=== PATIENT | female | born 1995 | race African-American/Black ===

== ENCOUNTER 2022-10-04 14:25 | Outpatient (CLI) | payer OTHER, SELFPAY ==
--- NOTE | ~2022-10-04 | MR_ITS ---
EXAMINATION: MR elbow RT wo con DATE: 10/04/2022 15:33 INDICATION: Flexion contracture of the right elbow TECHNIQUE: Magnetic resonance imaging (MRI) of the right elbow was performed without intravenous cont rast. Sequences included coronal, axial, and sagittal PD-weighted FS FSE and coronal, axial, and sagi ttal PD-weighted FSE. COMPARISON: None FINDINGS: Osseous/other: There appears to be an abnormal configuration of the proximal right radius which demonstrates a great er degree of angulation of the articular surface relative to the axis of the forearm which could be e ither developmental or sequela of an old healed fracture. No acute fracture or pathologic marrow repl acing process. Mild osteoarthritis at the proximal radioulnar articulation. Mild to moderate osteoart hritis at the capitellar articulation with deep chondral ulceration and cortical irregularity at the central aspect of the capitellum and less severe partial thickness cartilage loss but with mild under lying subarticular edema-like signal change along a portion of the radial head at the junction of its articulations with the capitellum and the proximal ulna. Minimal ulnotrochlear osteoarthritis.. Tendons: Triceps, biceps brachii and brachialis tendons are normal. Common flexor tendon wad is normal. Small enthesophytes and mild tendinopathy without tear at the humeral origin of the common extensor tendon wad. Ligaments: The medial and lateral collateral ligament complexes are normal. Cubital tunnel: Cubital tunnel is unremarkable with normal signal and caliber of the ulnar nerve. Fluid: Physiologic amount of fluid the elbow joint. IMPRESSION: 1. 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 2. Abnormal orientation of the articular surface of the radial head relative to the axis of the forea rm which could be developmental or sequela of an old healed radial neck fracture. Correlate with clin ical history. 2. Small enthesophyte and mild tendinopathy without tear at the lateral epicondylar origin of the com mon extensor tendon wad. Reviewed, dictated and finalized at location A. [employer] IMPRESSION: 1. Mild to moderate osteoarthritis at the right elbow most prominent at the rad iocapitellar articulation where there is high-grade capsular chondromalacia. 2. Abnormal orientation of the articular surface of the radial head relative to the axis of the forearm which could be developmental or sequela of an old heal ed radial neck fracture. Correlate with clinical history. 2. Small enthesophyte and mild tendinopathy without tear at the lateral epicond ylar origin of the common extensor tendon wad.
== END 2022-10-04 14:26 | disposition home or self-care (01) ==
PROVIDERS: PCP Nurse Practitioner Family; Visit Provider Orthopaedic Surgery
DX: M24.521 Contracture, right elbow (principal)
CPT/HCPCS: 73221